=== PATIENT | male | born 2000 | race Caucasian/White ===

== ENCOUNTER → 2023-11-06 08:11 | Outpatient (REF) | payer OTHER, SELFPAY | LOC: RAD 08:11 | PROVIDERS: ATTENDING PHYSICIAN Nurse Practitioner Adult Health | DX: R07.89 Other chest pain (principal); R07.81 Pleurodynia; R05.9 Cough, unspecified; R53.83 Other fatigue | CPT/HCPCS: 71046 ==

== ENCOUNTER → 2024-02-01 10:28 | Outpatient (REF) | payer OTHER, SELFPAY | LOC: RAD 10:28 | PROVIDERS: ATTENDING PHYSICIAN Nurse Practitioner Adult Health | DX: M79.89 Other specified soft tissue disorders (principal) | CPT/HCPCS: 72050; 72072 ==

== ENCOUNTER → 2024-02-16 07:09 | Outpatient (REF) | payer OTHER, SELFPAY | LOC: HWRAD 07:09 | PROVIDERS: ATTENDING PHYSICIAN Nurse Practitioner Adult Health | DX: M79.89 Other specified soft tissue disorders (principal) | CPT/HCPCS: 76536 ==